=== PATIENT | male | born 1960 | race African-American/Black ===

== ENCOUNTER 2018-06-04 14:39 | Inpatient (IN) | payer MEDICAID, OTHER ==
[2018-06-04 15:19] LABS: Hemoglobin 14.4 g/dL (14.0-18.0); Mean Corpuscular HGB CONC 32.3 g/dL (32.0-36.0); Mean Corpuscular Hemoglobin 28.8 pg (27.0-31.0); Mean Corpuscular Volume 89.2 fL (78.0-98.0); Mean Platelet Volume 6.6 fL (7.4-10.4); Platelet Count 206 thou/uL (130-400); RBC Distribution Width 11.9 % (11.5-14.5); Red Blood Cell (RBC) Count 5.01 mill/uL (4.70-6.10); White Blood Cell (WBC) Count 10.8 thou/uL (4.8-10.8)
--- NOTE | 2018-06-04 15:36 | RAD ---
CHEST 1 VIEW: Date: 06/04/18 HISTORY: Hypertension. Presyncope. COMPARISON: Radiograph from 2004. FINDINGS: Heart size is enlarged. Single lead defibrillator is in place. No pneumothorax. Multiple midline sternotomy wires. Scarring left lateral costophrenic sulcus. IMPRESSION: Chronic findings. No acute intrathoracic abnormality. POS: CET
[2018-06-04 15:38] LABS: Band 12 % (5-11); Lymphocytes 17 % (21-51); MDiff Complete? YES; Metamyelocyte 1 % (0-0); Monocytes 11 % (0-10); Neutrophil 58 % (42-75); Platelet Morphology Comment Appears Adequate; RBC Morphology Normal; Reactive Lymphocytes 1 % (0-10)
[2018-06-04 15:39] LABS: ALT (SGPT) 34 U/L (8-55); AST (SGOT) 39 U/L (5-34); Alkaline Phosphatase 105 U/L (40-150); Anion Gap 15 mmol/L (10-20); BUN (Urea Nitrogen) 28 mg/dL (8.4-25.7); Bilirubin, Total 0.2 mg/dL (0.2-1.2); Calc. Creatinine Clearance 0 mL/min (70-130); Calcium 8.2 mg/dL (7.8-10.44); Carbon Dioxide 21 mmol/L (22-29); Chloride 106 mmol/L (98-107); Estimated GFR-MDRD 50; Globulin 2.7 g/dL (2.4-3.5); Glucose 168 mg/dL (70-105); Potassium 3.9 mmol/L (3.5-5.1); Protein, Total 6.7 g/dL (6.0-8.3); Sodium 138 mmol/L (136-145)
[2018-06-04 15:54] LABS: CK (CPK) 660 U/L (30-200); Lipase 11 U/L (8-78)
[2018-06-04] MEDS ORDERED: ISOVUE-370 76%-LOCM 1 ML ONE (16:32)
[2018-06-04] MEDS ORDERED: Aspirin 325 MG TAB ONE (18:13)
[2018-06-04 18:56] LABS: CKMB 1.3 ng/mL (0-6.6)
[2018-06-04 19:10] LABS: Bilirubin Negative (Negative); Blood, Urine Moderate (Negative); Clarity CLEAR (Clear); Glucose, Urine (Dipstick) 100 mg/dL (Negative); Leukocyte Negative (Negative); Nitrite Negative (Negative); Protein, Urine (Dipstick) 100 mg/dL (Neg-Trace); Urobilinogen 0.2 mg/dL (0.2-1.0)
[2018-06-04 19:11] LABS: Specific Gravity, Urine 1.045 (1.002-1.036)
[2018-06-04 19:12] LABS: Bacteria/HPF None Seen HPF (None Seen); Hyaline Casts/LPF 0-3 HYALINE CAST LPF (0-3 Hyaline); Pathc Cast-AUWi Flag 0.27 (0-2.49); RBC/HPF 0-3 HPF (0-3); Squamous Epithelial None Seen HPF (0-3); WBC/HPF 0-3 HPF (0-3)
[2018-06-04] MEDS ORDERED: Acetaminophen 500 MG TAB ONE (19:14)
--- NOTE | 2018-06-04 19:27 | CT ---
CT ANGIOGRAM THORAX WITH IV CONTRAST AND 3D RECONSTRUCTION: Date: 06-04-18 History: Near syncope at 1200 hours today. Recent cough for 3-4 days. Comparison: None available. FINDINGS: A single lead left subclavian AICD device is noted in place. Post-surgical changes related to median sternotomy are noted. The heart is enlarged. There is a diminished attenuation seen involving a left upper lobe segmental pulmonary artery which i s thought to more likely be artifactual as opposed to an actual filling defect. There was a prior carlene dy in 2004 which demonstrated a similar finding in this region although that study was limited. No ad ditional filling defects are seen to suggest pulmonary embolus. There are rounded parenchymal areas of consolidation seen within the left lower lobe likely related t o infectious process and multifocal pneumonia. Follow up to complete resolution is recommended. The r ight lung is clear. Minimal dependent atelectasis is seen posteriorly on the right. There is no evidence of lymphadenopathy. Visualized upper abdomen demonstrates a grossly normal CT appearance for arterial phase of imaging. IMPRESSION: 1. Findings likely related to multifocal pneumonia in the left lower lobe with rounded areas of conso lidation present. Follow up to complete resolution is recommended. There is also mild peribronchial t hickening involving left lower lobe bronchi also likely related to infectious or inflammatory process . 2. Low density area within a left upper lobe segmental pulmonary artery which is thought to most like ly be artifactual and is not thought to be related a pulmonary embolus. No additional filling defects are seen in the pulmonary arteries. 3. Mild cardiomegaly. 4. Minimal stranding in the supraumbilical region in the midline upper abdomen which may be related t o site of prior hernia repair or scarring. This is incompletely evaluated on this exam. POS: VINEET
[2018-06-04] MEDS ORDERED: Oseltamivir 75 MG CAP PO SCH (20:00)
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
[2018-06-04 20:37] LABS: Troponin I 0.029 ng/mL (< 0.028)
[2018-06-04] MEDS ORDERED: Ondansetron ODT 4 MG TAB SL PRN (20:58)
[2018-06-04] MEDS ORDERED: Sodium Chloride 0.9% 1,000 ML IV SCH (20:58)
[2018-06-04] MEDS ORDERED: Ondansetron PF 4 MG/2 ML Vial IVP PRN (20:58)
[2018-06-04 21:24] VITALS: BMI 34.4
[2018-06-04] MEDS ORDERED: Ondansetron ODT 4 MG TAB PO PRN (21:35)
[2018-06-04] MEDS ORDERED: Dextrose 50% Abboject 50 ML SYRINGE SLOW IVP PRN (21:35)
[2018-06-04] MEDS ORDERED: Dextrose 5% in Water 1,000 ML IV PRN (21:35)
[2018-06-04] MEDS ORDERED: HumaLOG 300 UNITS/3 ML VIAL SC PRN ×2 (21:35)
[2018-06-04] MEDS ORDERED: Vancomycin HCl 1.75 GM in Sodium Chloride 0.9% 500 ML IVPB SCH (22:00)
[2018-06-04] MEDS: Lactated Ringer's 1,000 ML IV SCH (22:14)
[2018-06-04 22:46] LABS: Troponin I 0.041 ng/mL (< 0.028)
[2018-06-05 02:52] LABS: Anion Gap 12 mmol/L (10-20); BUN (Urea Nitrogen) 16 mg/dL (8.4-25.7); Calc. Creatinine Clearance 102 mL/min (70-130); Calcium 8.3 mg/dL (7.8-10.44); Carbon Dioxide 22 mmol/L (22-29); Chloride 108 mmol/L (98-107); Estimated GFR-MDRD 77; Glucose 187 mg/dL (70-105); Potassium 3.6 mmol/L (3.5-5.1); Sodium 138 mmol/L (136-145)
[2018-06-05 02:57] LABS: Troponin I 0.061 ng/mL (< 0.028)
[2018-06-05 03:14] LABS: Band 28 % (5-11); Hemoglobin 14.5 g/dL (14.0-18.0); Lymphocytes 15 % (21-51); MDiff Complete? YES; Mean Corpuscular HGB CONC 32.5 g/dL (32.0-36.0); Mean Corpuscular Volume 89.3 fL (78.0-98.0); Mean Platelet Volume 6.8 fL (7.4-10.4); Monocytes 6 % (0-10); Neutrophil 51 % (42-75); Platelet Count 206 thou/uL (130-400); Platelet Morphology Comment Appears Adequate; Red Blood Cell (RBC) Count 4.99 mill/uL (4.70-6.10); White Blood Cell (WBC) Count 11.3 thou/uL (4.8-10.8)
[2018-06-05] MEDS: Acetaminophen 325 MG TAB PO PRN ×3 (04:24→17:20)
[2018-06-05] MEDS ORDERED: PROVENTIL INHALER 6.7 G (200 INHALATIONS) INH PRN (05:00)
[2018-06-05] MEDS: Levothyroxine Sodium 100 MCG TAB PO SCH (05:47)
[2018-06-05 07:19] LABS: Troponin I 0.069 ng/mL (< 0.028)
--- NOTE | 2018-06-05 07:54 | PDOC.FM ---
- Subjective Subjective: Feeling much better this morning. No overnight events. Good appetite, eating breakfast. Reports cough only while laying down. Denies fever/chills although he did have an elevated temp this morning. Denies shortness of breath, chest pain. - Objective MAR Reviewed: Yes Vital Signs & Weight: Vital Signs (12 hours) Temp Pulse Resp BP Pulse Ox 06/05/18 04:00 102.8 F H 98 18 119/84 97 06/04/18 21:35 95 06/04/18 20:55 98.8 F 87 24 H 127/95 H 95 Weight Weight 106.957 kg I&O: 06/04/18 06/05/18 06/06/18 06:59 06:59 06:59 Intake Total 1435 Output Total 2200 Balance -765 Result Diagrams: 06/05/18 02:19 06/05/18 02:19 Phys Exam - Physical Examination Constitutional: NAD HEENT: moist MMs Neck: supple crackles bilateral bases L>R Cardiovascular: RRR, no significant murmur Gastrointestinal: soft, non-tender Musculoskeletal: no edema, pulses present Neurological: moves all 4 limbs Psychiatric: normal affect, A&O x 3 Skin: normal turgor Dx/Plan (1) Influenza A Code(s): J10.1 - FLU DUE TO OTH IDENT INFLUENZA VIRUS W OTH RESP MANIFEST Status: Acute (2) CAP (community acquired pneumonia) Code(s): J18.9 - PNEUMONIA, UNSPECIFIED ORGANISM Status: Acute (3) CAD (coronary artery disease) Code(s): I25.10 - ATHSCL HEART DISEASE OF [place] CORONARY ARTERY W/O ANG PCTRS Status: Chronic (4) CHF (congestive heart failure) Code(s): I50.9 - HEART FAILURE, UNSPECIFIED Status: Chronic (5) HLD (hyperlipidemia) Code(s): E78.5 - HYPERLIPIDEMIA, UNSPECIFIED Status: Chronic (6) HTN (hypertension) Code(s): I10 - ESSENTIAL (PRIMARY) HYPERTENSION Status: Chronic (7) Hypothyroidism Code(s): E03.9 - HYPOTHYROIDISM, UNSPECIFIED Status: Chronic (8) Mild intermittent asthma Code(s): J45.20 - MILD INTERMITTENT ASTHMA, UNCOMPLICATED Status: Chronic (9) Neuropathy Code(s): G62.9 - POLYNEUROPATHY, UNSPECIFIED Status: Chronic (10) Osteoarthritis Code(s): M19.90 - UNSPECIFIED OSTEOARTHRITIS, UNSPECIFIED SITE Status: Chronic (11) Type II diabetes mellitus Status: Chronic - Plan Plan: Sepsis 2/2 influenza vs. CAP - Initially febrile, tachycardic and tachypneic. Now with leukocytosis - Positive for Influenza A with superimposed LLL pneumonia found on CTA - Did not continue Tamiflu due to onset >72hrs - Continue IV Levaquin & Vancomycin due to + flu swab for MRSA coverage - Procal 0.21-> 0.23 - O2 PRN to maintain sats >90%. - Mucinex & Tylenol PRN - Blood & urine cultures pending - Sputum cx ordered Bandemia w/o leukocytosis - Treating pneumonia as above - Continue to monitor Indeterminately elevated troponin - 0.043-> 0.029-> 0.041-> 0.061-> 0.069 - EKG NSR w/ rate of 95 - Likely 2/2 demand ischemia Elevated D-dimer - D-dimer 0.47 - CTA negative for PE - likely 2/2 inflammation Elevated CK - CK 600 - s/p 2.7L prior to admission DMII - Continue home meds - CC diet, ACHS accuchecks - Mild SSI, hypoglycemic protocol LALY, resolved - Continue PO hydration HTN - Continue home meds as BP allows HLD - Continue home meds Hypothyroidism - Continue home meds OA - Tylenol PRN CAD: - Continue home meds Neuropathy - Continue home meds CHF - Continue home meds Code Status: FULL DVT ppx: Lovenox PCP: Incarcerated
[2018-06-05] MEDS: glipiZIDE 10 MG TAB PO SCH ×2 (08:11→21:13)
[2018-06-05] MEDS: Gemfibrozil 600 MG TAB PO SCH ×2 (08:12→17:17)
[2018-06-05] MEDS: carBAMazepine 200 MG TAB PO SCH ×2 (08:12→21:13)
[2018-06-05] MEDS: Benztropine 1 MG TAB PO SCH ×2 (08:12→21:13)
[2018-06-05] MEDS: Amlodipine 10 MG TAB PO SCH (08:12)
[2018-06-05] MEDS: Enoxaparin Sodium 40 MG/0.4 ML SYRINGE SC SCH (08:12)
[2018-06-05] MEDS: guaiFENesin/DM ER PO SCH ×2 (08:12→21:14)
[2018-06-05] MEDS: Atorvastatin Calcium 20 MG TAB PO SCH (08:12)
[2018-06-05] MEDS: Lactated Ringer's 1,000 ML IV SCH (08:14)
[2018-06-05] MEDS: Insulin Regular 300 UNITS/3 ML VIAL SC SCH ×2 (08:29→21:15)
[2018-06-05] MEDS ORDERED: Lisinopril 20 MG TAB PO SCH (09:00)
[2018-06-05] MEDS: NPH, Human Insulin Isophane 300 UNIT/3 ML VIAL SC SCH (10:46)
[2018-06-05] MEDS: Vancomycin HCl 1.5 GM in Sodium Chloride 0.9% 250 ML 300 ML IVPB SCH (10:46)
--- NOTE | 2018-06-05 13:03 | PRG ---
DATE OF SERVICE: 06/05/2018 SUBJECTIVE: Mr. Hightower is a 57-year-old black male patient, who was admitted with pneumonia and labs meeting sepsis criteria. He has been started on broad-spectrum antibiotics and already this morning feels and looks much better. His CBC initially showed a white count of 11,300. His hemoglobin was 14.8 with a hematocrit of 44.6, and he had a significant bandemia of 28%. Clinically, as stated, he has improved. We will continue his antibiotic coverage switching later to p.o. Job ID: [id number]
[2018-06-05] MEDS ORDERED: FLUoxetine HCl 20 MG CAP PO SCH (21:00)
[2018-06-05] MEDS ORDERED: NPH, Human Insulin Isophane 300 UNIT/3 ML VIAL SC SCH (21:00)
[2018-06-05] MEDS ORDERED: Haloperidol 5 MG TAB PO SCH (21:00)
[2018-06-06] MEDS: Cepastat Lozenges 1 LOZ PO PRN ×2 (03:00→05:52)
[2018-06-06] MEDS: Acetaminophen 325 MG TAB PO PRN ×2 (03:05→12:09)
[2018-06-06] MEDS: Levothyroxine Sodium 100 MCG TAB PO SCH (05:51)
--- NOTE | 2018-06-06 06:20 | PDOC.FM ---
- Subjective Subjective: Feeling better than yesterday. Cough has resolved, still endorses some shortness of breath. Denies fevers, chills. No overnight events. - Objective MAR Reviewed: Yes Vital Signs & Weight: Vital Signs (12 hours) Temp Pulse Resp BP Pulse Ox 06/06/18 03:46 99.2 F 86 17 135/67 96 06/05/18 20:20 99.1 F 82 16 120/72 96 Weight Weight 101.877 kg I&O: 06/04/18 06/05/18 06/06/18 06:59 06:59 06:59 Intake Total 1435 2720 Output Total 2200 3650 Balance -995 930 Result Diagrams: 06/06/18 05:36 06/06/18 05:36 Phys Exam - Physical Examination Constitutional: NAD HEENT: moist MMs Neck: supple Respiratory: wheezing present Cardiovascular: RRR, no significant murmur Gastrointestinal: soft, non-tender, positive bowel sounds multiple abdominal scars Musculoskeletal: no edema Neurological: moves all 4 limbs Psychiatric: normal affect, A&O x 3 Skin: cap refill <2 seconds Dx/Plan (1) Influenza A Code(s): J10.1 - FLU DUE TO OTH IDENT INFLUENZA VIRUS W OTH RESP MANIFEST Status: Acute (2) CAP (community acquired pneumonia) Code(s): J18.9 - PNEUMONIA, UNSPECIFIED ORGANISM Status: Acute (3) CAD (coronary artery disease) Code(s): I25.10 - ATHSCL HEART DISEASE OF [place] CORONARY ARTERY W/O ANG PCTRS Status: Chronic (4) CHF (congestive heart failure) Code(s): I50.9 - HEART FAILURE, UNSPECIFIED Status: Chronic (5) HLD (hyperlipidemia) Code(s): E78.5 - HYPERLIPIDEMIA, UNSPECIFIED Status: Chronic (6) HTN (hypertension) Code(s): I10 - ESSENTIAL (PRIMARY) HYPERTENSION Status: Chronic (7) Hypothyroidism Code(s): E03.9 - HYPOTHYROIDISM, UNSPECIFIED Status: Chronic (8) Mild intermittent asthma Code(s): J45.20 - MILD INTERMITTENT ASTHMA, UNCOMPLICATED Status: Chronic (9) Neuropathy Code(s): G62.9 - POLYNEUROPATHY, UNSPECIFIED Status: Chronic (10) Osteoarthritis Code(s): M19.90 - UNSPECIFIED OSTEOARTHRITIS, UNSPECIFIED SITE Status: Chronic (11) Type II diabetes mellitus Status: Chronic - Plan Plan: Sepsis 2/2 influenza vs. CAP - Initially febrile, tachycardic and tachypneic, leukocytosis - Positive for Influenza A with superimposed LLL pneumonia found on CTA - Did not continue Tamiflu due to onset >72hrs - Continue IV Levaquin & Vancomycin due to + flu swab for MRSA coverage - Procal 0.21-> 0.23 - O2 PRN to maintain sats >90%. - Mucinex & Tylenol PRN - Blood & urine cultures pending Bandemia w/o leukocytosis - Treating pneumonia as above - Continue to monitor Indeterminately elevated troponin - 0.043-> 0.029-> 0.041-> 0.061-> 0.069 - EKG NSR w/ rate of 95 - Likely 2/2 demand ischemia Elevated D-dimer - D-dimer 0.47 - CTA negative for PE - likely 2/2 inflammation Elevated CK - CK 600 - s/p 2.7L prior to admission DMII - Continue home meds - CC diet, ACHS accuchecks - Mild SSI, hypoglycemic protocol LALY, resolved - Continue PO hydration HTN - Continue home meds as BP allows HLD - Continue home meds Hypothyroidism - Continue home meds OA - Tylenol PRN CAD: - Continue home meds Neuropathy - Continue home meds CHF - Continue home meds Code Status: FULL DVT ppx: Lovenox PCP: Incarcerated
[2018-06-06 06:24] LABS: #Lymphocytes 2.1 thou/uL (1.20-3.40); #Monocytes 0.5 thou/uL (0.11-0.59); #Neutrophils 7.9 thou/uL (1.40-6.50); %Basophils 0.1 % (0.0-1.0); %Eosinophils 0.1 % (0.0-10.0); %Monocytes 4.8 % (0.0-10.0); %Neutrophils 75.1 % (42.0-75.0); Hemoglobin 13.5 g/dL (14.0-18.0); Mean Corpuscular HGB CONC 31.8 g/dL (32.0-36.0); Mean Corpuscular Hemoglobin 28.5 pg (27.0-31.0); Mean Corpuscular Volume 89.4 fL (78.0-98.0); Mean Platelet Volume 7.1 fL (7.4-10.4); Platelet Count 207 thou/uL (130-400); RBC Distribution Width 12.1 % (11.5-14.5); Red Blood Cell (RBC) Count 4.73 mill/uL (4.70-6.10); White Blood Cell (WBC) Count 10.6 thou/uL (4.8-10.8)
[2018-06-06 06:47] LABS: Anion Gap 11 mmol/L (10-20); BUN (Urea Nitrogen) 9 mg/dL (8.4-25.7); Calc. Creatinine Clearance 122 mL/min (70-130); Calcium 8.6 mg/dL (7.8-10.44); Carbon Dioxide 22 mmol/L (22-29); Chloride 110 mmol/L (98-107); Estimated GFR-MDRD Greater than 90; Glucose 94 mg/dL (70-105); Potassium 3.4 mmol/L (3.5-5.1); Sodium 140 mmol/L (136-145)
[2018-06-06] MEDS: carBAMazepine 200 MG TAB PO SCH (08:25)
[2018-06-06] MEDS: glipiZIDE 10 MG TAB PO SCH (08:25)
[2018-06-06] MEDS: Gemfibrozil 600 MG TAB PO SCH (08:25)
[2018-06-06] MEDS: Enoxaparin Sodium 40 MG/0.4 ML SYRINGE SC SCH (08:25)
[2018-06-06] MEDS: Amlodipine 10 MG TAB PO SCH (08:25)
[2018-06-06] MEDS: Atorvastatin Calcium 20 MG TAB PO SCH (08:25)
[2018-06-06] MEDS: Benztropine 1 MG TAB PO SCH (08:25)
[2018-06-06] MEDS: guaiFENesin/DM ER PO SCH (08:25)
[2018-06-06] MEDS: Insulin Regular 300 UNITS/3 ML VIAL SC SCH (08:26)
[2018-06-06] MEDS: NPH, Human Insulin Isophane 300 UNIT/3 ML VIAL SC SCH (08:29)
[2018-06-06 10:04] LABS: Vancomycin, Trough 4.3 ug/mL
[2018-06-06] MEDS: Vancomycin HCl 1.5 GM in Sodium Chloride 0.9% 250 ML 300 ML IVPB SCH (11:08)
--- NOTE | 2018-06-06 11:54 | PRG ---
DATE OF SERVICE: 06/06/2018 SUBJECTIVE: Mr. Hightower continues to look and feel much better. He is afebrile and has been so since shortly after admission. His vital signs are stable. We will switch him to p.o. Levaquin and discharge him. Job ID: [id number]
[2018-06-06 15:34] VITALS: BP 128/70; TEMP 98.9
--- NOTE | 2018-06-06 15:57 | PQF ---
AMINA NIX VERONICA *r [id number] [facility] [id number] CLINICAL DOCUMENTATION IMPROVEMENT CLARIFICATION FORM: ICD-10 Updated PLEASE DO AN ADDENDUM TO THE PROGRESS NOTE WITH ANY DOCUMENTATION UPDATES OR ADDITIONS AND CARRY THROUGH TO DC SUMMARY. THANK YOU. DATE: 06/06/2018 ATTN: DR. SNIDER Please exercise your independent, professional judgment in responding to the clarification form. Clinical indicators are provided on the bottom of this form for your review Please check appropriate box(s): HEART FAILURE: A. TYPE: [ ] Systolic / HFrEF [ ] Diastolic / HFpEF [ ] Combined Systolic / Diastolic B. ACUITY: [ ] Acute [ ] Acute on Chronic [ ] Chronic [x] Other diagnosis [ ] Unable to determine In addition, please specify: Present on Admission (POA): [x] Yes [ ] No [ ] Unable to determine For continuity of documentation, please document condition throughout progress notes and discharge summary. Thank You. CLINICAL INDICATORS - SIGNS / SYMPTOMS / LABS: 06/04-H&P: DX WITH ACUTE CHF, UNSPECIFIED. RESUME HOME MEDS. HAS NO BB SO IT SEEMS IT IS PEF, BUT UNABLE TO CONFIRM AT THIS TIME. 06/05-PN: CHF, CHRONIC. ELEVATED TROPONIN, INDETERMINATE. RISKS: History of CAD DIABETES MELLITUS Hypertension TREATMENTS: HOME MEDS INCLUDE: AMLODIPINE, IMDUR, LISINOPRIL. Thank you, Evelyne (This form is maintained as a part of the permanent medical record) 2015 [employer], [employer]. All Rights Reserved Evelyne Yuen RN, [email or web address] [email or web address] [phone] [facility]
--- NOTE | 2018-06-06 22:40 | DIS ---
DATE OF ADMISSION: 06/04/2018 DATE OF DISCHARGE: 06/06/2018 RESIDENT: Clover Alejandre MD, PGY-1 ADMITTING ATTENDING: Dee Brewer MD DISCHARGE ATTENDING: Saul Paige MD CONSULTS: None. PROCEDURES: 1. Chest x-ray. Chronic findings, no acute intrathoracic abnormality. 2. Chest thorax CTA, findings likely related to multifocal pneumonia in the left lower lobe with rounded areas of consolidation present. Followup to complete resolution is recommended. There is also mild peribronchiolar thickening involving left lower lobe bronchi also likely related to infectious or inflammatory process. Low-density area within the left upper lobe segmental pulmonary artery, which is thought to be most likely artifactual and is not thought to be related to pulmonary embolus. No additional filling defects are seen in the pulmonary arteries. Mild cardiomegaly. Minimal stranding in the periumbilical region in the midline upper abdomen, which may be related to prior hernia repair of scarring. This is incompletely evaluated on this exam. PRIMARY DIAGNOSIS: Community-acquired sepsis secondary to influenza and community-acquired pneumonia. SECONDARY DIAGNOSES: 1. Bandemia without leukocytosis. 2. Indeterminate troponin. 3. Elevated D-dimer. 4. Elevated CK. 5. Type 2 diabetes. 6. Acute kidney injury, resolved. 7. Hypertension. 8. Hyperlipidemia. 9. Hypothyroidism. 10. OA. 11. Coronary artery disease. 12. Neuropathy. 13. Congestive heart failure. DISCHARGE MEDICATIONS: 1. Amlodipine 10 mg daily. 2. Albuterol 2 inhalations q.4 hours p.r.n. 3. Atorvastatin 20 mg daily. 4. Cogentin 1 mg b.i.d. 5. Carbamazepine 200 mg b.i.d. 6. Lozenges p.r.n. 7. Fluoxetine 20 mg at bedtime. 8. Gemfibrozil 600 mg b.i.d. 9. Glipizide 10 mg b.i.d. 10. Mucinex 2 tabs q.12 hours. 11. Haldol 5 mg at bedtime. 12. Novolin 24 units q.a.m. 13. Novolin 18 units at bedtime. 14. Regular insulin 5 units subcu b.i.d. 15. Imdur 60 mg at bedtime. 16. Levothyroxine 0.1 mg daily. 17. Lisinopril 40 mg daily. HISTORY OF PRESENT ILLNESS/HOSPITAL COURSE: Mr. Hightower is a 57-year-old male, who presented from senior living with past medical history of type 2 diabetes, coronary artery disease, hypertension and hyperlipidemia, who presented with generalized weakness and lightheadedness and 2 weeks of cough productive of green sputum. He was noted to have an SBP in the 90s and given 700 mL of normal saline in the ED. Labs were notable for D-dimer 0.47. CTA showed no signs of pulmonary embolism, but did show signs of pneumonia. See images from above. Creatinine 1.70, AST 39, creatine kinase 660. Troponin 0.043, 0.029, 0.041, 0.061, and 0.069. Procalcitonin 0.21 and 0.23. Urine showed microhematuria. Flu swab was positive for influenza A. The patient was given Tamiflu, although this was not continued because he was outside the window for treatment. He was also given 325 mg of aspirin, 1 g of Tylenol, 2 L normal saline, 750 mg of IV Levaquin. This was continued in the hospital and he showed improvement and was transitioned to p.o. prior to discharge. Sats were fine on room air. The urine and blood cultures were negative at discharge. The patient did have an intermediate troponin. EKG showed normal sinus rhythm, no ST-segment changes. His LALY resolved with discharge. Discharge creatinine 1.17, GFR 77. In regard to his chronic medical conditions of type 2 diabetes, hypertension, hyperlipidemia, hypothyroidism, OA, coronary artery disease, nephropathy and CHF, he was continued on home medications. His medical conditions are stable throughout hospitalization. DISPOSITION: Stable. DISCHARGE INSTRUCTIONS: 1. Location: [facility]. 2. Diet: Heart healthy. 3. Activity: No restrictions. 4. Followup: Follow up with Unit physician as needed. Job ID: [id number]
[2018-06-06] MEDS ORDERED: Vancomycin HCl 1.5 GM in Sodium Chloride 0.9% 250 ML 300 ML IVPB SCH (23:00)
--- NOTE | 2018-06-09 13:44 | EKG ---
Test Reason : HYPOTENSION Blood Pressure : / mmHG Vent. Rate : 095 BPM Atrial Rate : 095 BPM P-R Int : 134 ms QRS Dur : 090 ms QT Int : 366 ms P-R-T Axes : 065 049 117 degrees QTc Int : 459 ms Normal sinus rhythm Inferior infarct , age undetermined Anterior infarct , age undetermined Abnormal ECG Confirmed by GENESIS CUELLAR, WALI ([id number]), greeting card editor TRACY CONWAY ([id number]) on 06/09/2018 1:44:18 PM Referred By: SPIKE Confirmed By:WALI HURTADO MD
== END 2018-06-06 15:40 | DRG 871 ==
LOC: EEVIPCON 14:39 → ERS 14:39 → 2NO 20:50
PROVIDERS: ADMIT Student in an Organized Health Care Education/Training Program; ATTEND Student in an Organized Health Care Education/Training Program
DX: A41.89 Other specified sepsis (principal); J10.00 Influenza due to other identified influenza virus with unspecified type of pneumonia; N17.9 Acute kidney failure, unspecified; I25.10 Atherosclerotic heart disease of native coronary artery without angina pectoris; E78.5 Hyperlipidemia, unspecified; E03.9 Hypothyroidism, unspecified; E11.40 Type 2 diabetes mellitus with diabetic neuropathy, unspecified; M19.90 Unspecified osteoarthritis, unspecified site; J45.20 Mild intermittent asthma, uncomplicated; J10.1 Influenza due to other identified influenza virus with other respiratory manifestations; R79.89 Other specified abnormal findings of blood chemistry; I50.9 Heart failure, unspecified; I11.0 Hypertensive heart disease with heart failure; Z90.49 Acquired absence of other specified parts of digestive tract; Z95.0 Presence of cardiac pacemaker
CPT/HCPCS: 36415; 36416; 71045; 71275; 80048; 80053; 80202; 81003; 81015; 82010; 82550; 82553; 83605; 83690; 83880; 84145; 84484; 85025; 85379; 87040; 87086; 87804; 93005; 96365; 96366; J1650; J1815; J1956; J3370; J7050; J7120; Q9966